=== PATIENT | female | born 1945 | race Caucasian/White ===

== ENCOUNTER 2017-06-05 08:09 | Day surgery (SDC) | payer MEDICARE, OTHER ==
[2017-06-05] MEDS ORDERED: Lactated Ringer's 500 ML IV ONE (09:06)
[2017-06-05 09:24] VITALS: O2SAT 100
[2017-06-05] MEDS ORDERED: Propofol 10 mg/ml Inj (20 ML) ONE (10:14)
[2017-06-05] MEDS ORDERED: Midazolam 2 MG/2 ML VIAL ONE (10:14)
[2017-06-05 10:42] VITALS: TEMP 97
[2017-06-05 10:58] VITALS: BP 111/65; PULSE 79; RESP 18
== END 2017-06-05 11:23 | disposition home or self-care (01) ==
LOC: H.ENDO 08:09
PROVIDERS: ATTEND Internal Medicine Gastroenterology
DX: Z12.11 Encounter for screening for malignant neoplasm of colon (principal); R10.12 Left upper quadrant pain; E78.5 Hyperlipidemia, unspecified; K64.8 Other hemorrhoids; K44.9 Diaphragmatic hernia without obstruction or gangrene
CPT/HCPCS: 43239; 88305; G0121; J2001; J2250; J2704; J3010; J7120